=== PATIENT | female | born 1960 | race African-American/Black ===

== ENCOUNTER 2018-05-16 14:14 | Inpatient (IN) | payer SELFPAY ==
[2018-05-16] MEDS ORDERED: NA CHLORIDE 0.9% 1,000 ML ONE ×2 (15:11→18:40)
[2018-05-16] MEDS ORDERED: ONDANSETRON 4 MG/2 ML VIAL ONE (15:11)
[2018-05-16 15:27] LABS: Absolute Lymphocytes (CBC) 1.3 K/uL (0.7-4.9); Absolute Monocytes 0.6 K/uL (0.1-1.3); Absolute Neutrophil 4.9 K/uL (1.8-8.0); Basophils % 0.3 % (0-1.3); Eosinophils % 0.1 % (0-4.4); Hematocrit 16.9 % (36.0-45.0); Lymphocytes % 18.9 % (15.3-44.8); MPV 7.9 fL (7.6-11.3); Monocytes % 8.3 % (3.3-12.3); RBC Red Blood Cell Count 2.02 M/uL (3.86-4.86)
--- NOTE | 2018-05-16 15:30 | EKG ---
Test Date: 2018-05-16 Test Time: 15:07:42 Anatomical Embalmer: MAKI MEASUREMENT RESULTS: Intervals: Rate: 80 DE: 138 QRSD: 84 QT: 420 QTc: 484 [place]: P: 41 DE: 138 QRS: 21 T: -12 INTERPRETIVE STATEMENTS: Normal sinus rhythm T wave abnormality, non specific Abnormal ECG No previous ECG available for comparison Electronically Signed On 05-16-18 15:30:05 DROP TESTER by Derek Duffy
[2018-05-16 15:36] LABS: Protime INR 1.06
[2018-05-16 15:48] LABS: ALT/SGPT 21 U/L (12-78); AST/SGOT 15 U/L (15-37); Albumin 2.8 g/dL (3.4-5.0); Alkaline Phosphatase 67 U/L (45-117); BUN Blood Urea Nitrogen 11 mg/dL (7-18); Bicarbonate 25 mmol/L (21-32); Bilirubin Direct 0.1 mg/dL (0-0.2); Bilirubin Total 0.1 mg/dL (0.2-1.0); Glucose Level 154 mg/dL (74-106); Lipase 80 U/L (73-393); Magnesium 2.2 mg/dL (1.8-2.4); NT PRO-BNP 44 pg/mL (<125); Potassium 3.3 mmol/L (3.5-5.1); Protein, Total 6.9 g/dL (6.4-8.2); Sodium Level 137 mmol/L (136-145); Troponin (Emerg Dept Use Only) < 0.02 ng/mL (0.0-0.045)
[2018-05-16] MEDS ORDERED: PANTOPRAZOLE 40 MG INJ ONE ×2 (16:07→16:41)
--- NOTE | 2018-05-16 16:14 | EDPHYS ---
Physician Documentation [facility] Name: Melissa Tucker Age: 57 yrs Sex: Female : 1960 Arrival Date: 05/16/2018 Time: 14:16 Bed 7 Private MD: ED Physician Trav Gamboa HPI: 05/16 16:05 This 57 yrs old Black Female presents to ER via EMS with complaints of Nausea/Vomiting. zain 16:05 The patient presents to the emergency department with abdominal pain, of the right zain lower quadrant and left lower quadrant. Onset: The symptoms/episode began/occurred 3 day(s) ago. Possible causes: unknown. The symptoms are aggravated by nothing. The symptoms are alleviated by remaining still. Severity of symptoms: At their worst the symptoms were mild moderate in the emergency department the symptoms are unchanged. Historical: - Allergies: 14:19 No Known Allergies; jl7 - Home Meds: 14:19 None [Active]; jl7 - PMHx: 14:19 None; jl7 - PSHx: 14:19 None; jl7 - Immunization history:: Adult Immunizations unknown. - Social history:: Smoking status: Patient/guardian denies using tobacco. - Ebola Screening: : No symptoms or risks identified at this time. ROS: 16:09 Constitutional: Negative for fever, chills, and weight loss, ENT: Negative for injury, zain pain, and discharge, Neck: Negative for injury, pain, and swelling, Cardiovascular: Negative for chest pain, palpitations, and edema, Respiratory: Negative for shortness of breath, cough, wheezing, and pleuritic chest pain, Back: Negative for injury and pain, : Negative for injury, bleeding, discharge, and swelling, MS/Extremity: Negative for injury and deformity, Neuro: Negative for headache, weakness, numbness, tingling, and seizure. 16:09 Eyes: Positive for pale conjuctiva. 16:09 Abdomen/GI: Positive for black/tarry stool. 16:09 Neuro: Positive for dizziness, near syncope, weakness. Exam: 16:09 Constitutional: This is a well developed, well nourished patient who is awake, alert, zain and in no acute distress. Head/Face: Normocephalic, atraumatic. ENT: Nares patent. No nasal discharge, no septal abnormalities noted. Tympanic membranes are normal and external auditory canals are clear. Oropharynx with no redness, swelling, or masses, exudates, or evidence of obstruction, uvula midline. Mucous membranes moist. Neck: Trachea midline, no thyromegaly or masses palpated, and no cervical lymphadenopathy. Supple, full range of motion without nuchal rigidity, or vertebral point tenderness. No Meningismus. Chest/axilla: Normal chest wall appearance and motion. Nontender with no deformity. No lesions are appreciated. Cardiovascular: Regular rate and rhythm with a normal S1 and S2. No gallops, murmurs, or rubs. Normal PMI, no JVD. No pulse deficits. Respiratory: Lungs have equal breath sounds bilaterally, clear to auscultation and percussion. No rales, rhonchi or wheezes noted. No increased work of breathing, no retractions or nasal flaring. Back: No spinal tenderness. No costovertebral tenderness. Full range of motion. Female : Normal external genitalia. MS/ Extremity: Pulses equal, no cyanosis. Neurovascular intact. Full, normal range of motion. Neuro: Awake and alert, GCS 15, oriented to person, place, time, and situation. Cranial nerves II-XII grossly intact. Motor strength 5/5 in all extremities. Sensory grossly intact. Cerebellar exam normal. Normal gait. Psych: Awake, alert, with orientation to person, place and time. Behavior, mood, and affect are within normal limits. 16:09 Eyes: Conjunctiva: pale. 16:09 Abdomen/GI: Bowel sounds: normal, Palpation: abdomen is soft and non-tender, Rectal exam: rectal tone normal, Stool: guaiac positive, black, hemorrhoid(s), are not appreciated, mass, is not appreciated, swelling, is not appreciated, tenderness, is not appreciated, Liver: no appreciated palpable abnormalities, Hernia: not appreciated. Vital Signs: 14:19 BP 109 / 80; Pulse 88; Resp 14 S; Temp 98.5(O); Pulse Ox 100% on R/A; Weight 96.62 kg jl7 (R); Height 5 ft. 6 in. (167.64 cm) (R); Pain 0/10; 15:00 BP 133 / 71; Pulse 99; Resp 16 S; Pulse Ox 99% on R/A; jl7 15:30 BP 128 / 61; Pulse 85; Resp 16 S; Pulse Ox 100% on R/A; jl7 16:00 BP 125 / 75; Pulse 90; Resp 16 S; Pulse Ox 99% on R/A; jl7 16:30 BP 130 / 80; Pulse 98; Resp 16 S; Pulse Ox 99% on R/A; jl7 17:30 BP 127 / 62; Pulse 84; Resp 16 S; Pulse Ox 99% on R/A; jl7 18:00 BP 123 / 67; Pulse 91; Resp 16 S; Temp 97.8(TE); Pulse Ox 100% on R/A; jl7 18:30 BP 132 / 77; Pulse 94; Resp 16 S; Pulse Ox 100% on R/A; Pain 0/10; jl7 20:47 BP 167 / 87; Pulse 88; Resp 16 S; Temp 97.6; Pulse Ox 100% on R/A; bb 14:19 Body Mass Index 34.38 (96.62 kg, 167.64 cm) [facility] MDM: 14:20 Patient medically screened. [facility] 16:09 Data reviewed: vital signs, nurses notes, lab test result(s), EKG, radiologic studies, [facility] plain films. 05/16 14:37 Order name: Basic Metabolic Panel [facility] 05/16 14:37 Order name: CBC with Diff [facility] 05/16 14:37 Order name: LFT's [facility] 05/16 14:37 Order name: Magnesium [facility] 05/16 14:37 Order name: NT PRO-BNP [facility] 05/16 14:37 Order name: PT-INR; Complete Time: 15:53 [facility] 05/16 14:37 Order name: Troponin (emerg Dept Use Only); Complete Time: 15:53 [facility] 05/16 14:37 Order name: Lipase; Complete Time: 15:53 [facility] 05/16 14:37 Order name: Urine Culture [facility] 05/16 14:37 Order name: Basic Metabolic Panel; Complete Time: 15:53 [facility] 05/16 14:37 Order name: CBC with Automated Diff; Complete Time: 15:53 [facility] 05/16 14:37 Order name: Liver (Hepatic) Function; Complete Time: 15:53 [facility] 05/16 14:37 Order name: Magnesium; Complete Time: 15:53 [facility] 05/16 14:37 Order name: NT PRO-BNP; Complete Time: 15:53 [facility] 05/16 14:37 Order name: XRAY Chest (1 view) [facility] 05/16 14:37 Order name: EKG; Complete Time: 14:38 [facility] 05/16 14:37 Order name: Cardiac monitoring; Complete Time: 15:12 [facility] 05/16 14:37 Order name: EKG - Nurse/Tech; Complete Time: 15:12 [facility] 05/16 15:49 Order name: Urine Dipstick--Ancillary (enter results) 05/16 15:53 Order name: Type And Screen [facility] 05/16 16:18 Order name: Bb Add On 05/16 16:25 Order name: Packed RBC Leukored -1 [facility] 05/16 16:36 Order name: ABO/RH no charge [facility] 05/16 14:37 Order name: IV Saline Lock; Complete Time: 15:12 [facility] 05/16 14:37 Order name: Labs collected and sent; Complete Time: 15:12 [facility] 05/16 14:37 Order name: O2 Per Protocol; Complete Time: 15:12 [facility] 05/16 14:37 Order name: O2 Sat Monitoring; Complete Time: 15:12 [facility] 05/16 14:37 Order name: Urine Dipstick-Ancillary (obtain specimen); Complete Time: 16:32 [facility] 05/16 16:02 Order name: Transfuse; Complete Time: 20:30 [facility] 05/16 16:12 Order name: IV Saline Lock - Large Bore; Complete Time: 16:32 [facility] Administered Medications: 15:05 Drug: NS 0.9% 500 ml Route: IV; Rate: bolus; Site: right antecubital; jl7 15:45 Follow up: IV Status: Completed infusion jl7 15:11 Drug: NS 0.9% 1000 ml Route: IV; Rate: 125 ml/hr; Site: right antecubital; jl7 20:31 Follow up: IV Status: Infusion continued upon admission ak1 15:11 Drug: Zofran 4 mg Route: IVP; Site: right antecubital; jl7 15:30 Follow up: Response: No adverse reaction; Nausea is decreased jl7 16:01 Drug: ProTONIX 40 mg Route: IVP; Site: right antecubital; sg 16:59 Follow up: Response: No adverse reaction sg 16:10 Drug: ProTONIX 40 mg Route: IVP; Site: right antecubital; jl7 16:59 Follow up: Response: No adverse reaction sg 16:25 Drug: ProTONIX 8 mg/hr Route: IV; Rate: 25 ml/hr; Site: right antecubital; sg 18:05 Follow up: IV Pause: 05/16/2018 18:05; IV Pause Reason: Limited IV access/Medication jl7 interaction 20:30 Follow up: IV Status: Infusion continued upon admission ak1 16:38 Drug: NS 0.9% 1000 ml Route: IV; Rate: 1 bolus; Site: right antecubital; sg Disposition: 05/16/18 16:13 Hospitalization ordered by Dano Whitney for Observation. Preliminary diagnosis are Gastrointestinal hemorrhage, unspecified - upper, Dizziness and giddiness, Weakness, Anemia, unspecified - upper gi bleed. - Bed requested for Telemetry/MedSurg (Inpatient). - Status is Observation. ak1 - Condition is Fair. - Problem is new. - Symptoms are unchanged. UTI on Admission? No Signatures: Dispatcher [employer] EDMS Sherrill aWlter Kimberly, RN RN kl Gay, Steven, RN RN sg Anderson, Corey, MD MD cha Krenek, Amber, RN RN ak1 Aggie Ortiz RN RN jl7 Cristal Champion RN RAMY df Corrections: (The following items were deleted from the chart) 17:17 16:13 Hospitalization Ordered by Dano Whitney MD for Inpatient Admission. Preliminary bd diagnosis is Gastrointestinal hemorrhage, unspecified - upper; Dizziness and giddiness; Weakness; Anemia, unspecified - upper gi bleed. Bed requested for Telemetry/MedSurg (Inpatient). Status is Inpatient Admission. Condition is Fair. Problem is new. Symptoms are unchanged. UTI on Admission? No. zain 17:48 17:17 05/16/2018 16:13 Hospitalization Ordered by Dano Whitney MD for Observation. df Preliminary diagnosis is Gastrointestinal hemorrhage, unspecified - upper; Dizziness and giddiness; Weakness; Anemia, unspecified - upper gi bleed. Bed requested for Telemetry/MedSurg (Inpatient). Status is Observation. Condition is Fair. Problem is new. Symptoms are unchanged. UTI on Admission? No. bd 20:54 17:48 05/16/2018 16:13 Hospitalization Ordered by Dano Whitney MD for Observation. kl Preliminary diagnosis is Gastrointestinal hemorrhage, unspecified - upper; Dizziness and giddiness; Weakness; Anemia, unspecified - upper gi bleed. Bed requested for Intensive Care Unit. Status is Observation. Condition is Fair. Problem is new. Symptoms are unchanged. UTI on Admission? No. df 22:01 20:54 05/16/2018 16:13 Hospitalization Ordered by Dano Whitney MD for Observation. ak1 Preliminary diagnosis is Gastrointestinal hemorrhage, unspecified - upper; Dizziness and giddiness; Weakness; Anemia, unspecified - upper gi bleed. Bed requested for Telemetry/MedSurg (Inpatient). Status is Observation. Condition is Fair. Problem is new. Symptoms are unchanged. UTI on Admission? No. kl
--- NOTE | 2018-05-16 16:14 | ER ---
Nurse's Notes [facility] Name: Melissa Tucker Age: 57 yrs Sex: Female : 1960 Arrival Date: 05/16/2018 Time: 14:16 Bed 7 Private MD: Diagnosis: Gastrointestinal hemorrhage, unspecified-upper;Dizziness and giddiness;Weakness;Anemia, unspecified-upper gi bleed Presentation: 05/16 14:16 Presenting complaint: EMS states: Pt has been nauseous x 2 days, vomited once in the [facility] [employer] parking lot. Transition of care: patient was not received from another setting of care. Onset of symptoms was May 15, 2018. Risk Assessment: Do you want to hurt yourself or someone else? Patient reports no desire to harm self or others. Initial Sepsis Screen: Does the patient meet any 2 criteria? No. Patient's initial sepsis screen is negative. Does the patient have a suspected source of infection? No. Patient's initial sepsis screen is negative. Care prior to arrival: Glucose check: 147. 14:16 Method Of Arrival: EMS: [email or web address] 14:16 Acuity: KALPANA 4 jl7 15:50 Acuity: KALPANA 3 jl7 Triage Assessment: 14:19 General: Appears in no apparent distress. uncomfortable, Behavior is calm, cooperative. jl7 Pain: Denies pain. EENT: No signs and/or symptoms were reported regarding the EENT system. Neuro: Level of Consciousness is awake, alert, obeys commands, Oriented to person, place, time, situation, Speech is normal, Facial symmetry appears normal. Cardiovascular: Patient's skin is warm and dry. Respiratory: Airway is patent Respiratory effort is even, unlabored, Respiratory pattern is regular, symmetrical. GI: Reports nausea, vomiting, since nausea x 2 days, vomited one time 30 minutes ago. : No signs and/or symptoms were reported regarding the genitourinary system. Derm: Skin is dry, Skin is normal, Skin temperature is warm. Musculoskeletal: No signs and/or symptoms reported regarding the musculoskeletal system. Historical: - Allergies: 14:19 No Known Allergies; jl7 - Home Meds: 14:19 None [Active]; jl7 - PMHx: 14:19 None; jl7 - PSHx: 14:19 None; jl7 - Immunization history:: Adult Immunizations unknown. - Social history:: Smoking status: Patient/guardian denies using tobacco. - Ebola Screening: : No symptoms or risks identified at this time. Screenin:50 Abuse screen: Denies threats or abuse. Denies injuries from another. Nutritional sg screening: No deficits noted. Tuberculosis screening: No symptoms or risk factors identified. Never had TB. Fall Risk None identified. Assessment: 14:25 General: Appears in no apparent distress. comfortable, well groomed, well developed, sg well nourished, Behavior is calm, cooperative, appropriate for age. Pain: Complains of pain in abdomen. Neuro: Level of Consciousness is awake, alert, obeys commands, Oriented to person, place, time, situation, Bricklayer Helper are equal bilaterally Gait is steady, Speech is normal, Facial symmetry appears normal. Cardiovascular: Capillary refill is brisk in bilateral fingers Patient's skin is warm and dry. Chest pain is denied. Respiratory: Airway is patent Trachea midline Respiratory effort is even, unlabored, Respiratory pattern is regular, symmetrical. GI: Abdomen is round obese, Bowel sounds present X 4 quads. GI: Reports nausea, vomiting. : No signs and/or symptoms were reported regarding the genitourinary system. EENT: No signs and/or symptoms were reported regarding the EENT system. Derm: Skin is pink, warm \T\ dry. Musculoskeletal: No signs and/or symptoms reported regarding the musculoskeletal system. 15:30 Reassessment: No changes from previously documented assessment. Patient and/or family jl7 updated on plan of care and expected duration. Pain level reassessed. Patient is alert, oriented x 3, equal unlabored respirations, skin warm/dry/pink. 16:30 Reassessment: Patient appears in no apparent distress at this time. Patient and/or jl7 family updated on plan of care and expected duration. Pain level reassessed. Patient is alert, oriented x 3, equal unlabored respirations, skin warm/dry/pink. 18:05 Reassessment: PRBCs started at 75 ml/hr to right AC. jl7 19:40 Reassessment: Patient appears in no apparent distress at this time. Patient and/or ak1 family updated on plan of care and expected duration. Pain level reassessed. Patient is alert, oriented x 3, equal unlabored respirations, skin warm/dry/pink. Patient states symptoms have improved. pt denies SOB, denies pain at this time. pt informed of admission process and wait for transport to ICU. will continue to monitor. . 21:39 Reassessment: Patient is alert, oriented x 3, equal unlabored respirations, skin bb warm/dry/pink. IV site intact, patent with blood infusing. Vital Signs: 14:19 BP 109 / 80; Pulse 88; Resp 14 S; Temp 98.5(O); Pulse Ox 100% on R/A; Weight 96.62 kg jl7 (R); Height 5 ft. 6 in. (167.64 cm) (R); Pain 0/10; 15:00 BP 133 / 71; Pulse 99; Resp 16 S; Pulse Ox 99% on R/A; jl7 15:30 BP 128 / 61; Pulse 85; Resp 16 S; Pulse Ox 100% on R/A; jl7 16:00 BP 125 / 75; Pulse 90; Resp 16 S; Pulse Ox 99% on R/A; jl7 16:30 BP 130 / 80; Pulse 98; Resp 16 S; Pulse Ox 99% on R/A; jl7 17:30 BP 127 / 62; Pulse 84; Resp 16 S; Pulse Ox 99% on R/A; jl7 18:00 BP 123 / 67; Pulse 91; Resp 16 S; Temp 97.8(TE); Pulse Ox 100% on R/A; jl7 18:30 BP 132 / 77; Pulse 94; Resp 16 S; Pulse Ox 100% on R/A; Pain 0/10; jl7 20:47 BP 167 / 87; Pulse 88; Resp 16 S; Temp 97.6; Pulse Ox 100% on R/A; bb 14:19 Body Mass Index 34.38 (96.62 kg, 167.64 cm) [facility] ED Course: 14:16 Patient arrived in ED. [facility] 14:19 Triage completed. [facility] 14:19 Arm band placed on right wrist. [facility] 14:20 Trav Gamboa MD is Attending Physician. [facility] 14:30 Patient has correct armband on for positive identification. Bed in low position. Call [facility] light in reach. Side rails up X 1. Pulse ox on. NIBP on. Warm blanket given. 15:00 Inserted saline lock: 22 gauge in right antecubital area, using aseptic technique. ss Blood collected. Patient maintains SpO2 saturation greater than 95% on room air. 15:10 Aggie Ortiz, RN is Primary Nurse. jl7 15:13 EKG done, by educational technologist. reviewed by Trav Gamboa MD. sm3 15:18 XRAY Chest (1 view) In Process Unspecified. EDMS 16:10 T\T\S collected, blood band applied to patient. Inserted saline lock: 22 gauge in left jb1 antecubital area, using aseptic technique. 16:12 Dano Whitney MD is Hospitalizing Provider. zain 18:05 IV discontinued, intact, bleeding controlled, No redness/swelling at site. Pressure jl7 dressing applied, 22 left AC dc'd at this time. 20:22 Inserted 18 gauge 10 cm midline to left upper arm brachial vein on second attempt. Line fc with good blood return and flushes well. 20:32 No provider procedures requiring assistance completed. ak1 Administered Medications: 15:05 Drug: NS 0.9% 500 ml Route: IV; Rate: bolus; Site: right antecubital; jl7 15:45 Follow up: IV Status: Completed infusion jl7 15:11 Drug: NS 0.9% 1000 ml Route: IV; Rate: 125 ml/hr; Site: right antecubital; jl7 20:31 Follow up: IV Status: Infusion continued upon admission ak1 15:11 Drug: Zofran 4 mg Route: IVP; Site: right antecubital; jl7 15:30 Follow up: Response: No adverse reaction; Nausea is decreased jl7 16:01 Drug: ProTONIX 40 mg Route: IVP; Site: right antecubital; sg 16:59 Follow up: Response: No adverse reaction sg 16:10 Drug: ProTONIX 40 mg Route: IVP; Site: right antecubital; jl7 16:59 Follow up: Response: No adverse reaction sg 16:25 Drug: ProTONIX 8 mg/hr Route: IV; Rate: 25 ml/hr; Site: right antecubital; sg 18:05 Follow up: IV Pause: 05/16/2018 18:05; IV Pause Reason: Limited IV access/Medication jl7 interaction 20:30 Follow up: IV Status: Infusion continued upon admission ak1 16:38 Drug: NS 0.9% 1000 ml Route: IV; Rate: 1 bolus; Site: right antecubital; sg Outcome: 16:13 Decision to Hospitalize by Provider. zain 20:33 Condition: stable ak1 20:33 Instructed on the need for admit. 21:38 Admitted to Tele accompanied by nurse, accompanied by carlos, via stretcher, room 218, bb with chart, Report called to Malcolm MCCANN 22:01 Patient left the ED. ak1 Signatures: Dispatcher [employer] EDMS Arsen Hooker jb1 Kody Montanez, RN RN Trav Rascon MD MD cha Chretien, Felicia, RN RN fc Jordyn Bagley RN RN Carlota Lemus RN RN ss Nya Zee RN RN ak1 Aggie Ortiz RN RN [email or web address] Sylvie Blackwell 3 Corrections: (The following items were deleted from the chart) 18:28 18:28 IV Status: Completed infusion sal huang
--- NOTE | 2018-05-16 16:16 | RAD REPORT ---
EXAM DESCRIPTION: [place] Single View05/16/2018 3:18 pm CLINICAL HISTORY: abd pain COMPARISON: none FINDINGS: The lungs appear clear of acute infiltrate. The heart is normal size IMPRESSION: No acute abnormalities displayed
[2018-05-16 16:17] LABS: Urine Blood 2+ (NEG); Urine Glucose TRACE (NEG); Urine Protein NEGATIVE (NEG); Urine Specific Gravity 1.025 (1.005-1.030)
[2018-05-16] MEDS: PANTOPRAZOLE INJ 80 MG in NA CHLORIDE 0.9% 250 ML IV SCH (17:00)
[2018-05-16] MEDS ORDERED: NA CHLORIDE 0.9% 250 ML ONE ×2 (18:07→21:04)
[2018-05-16 19:25] VITALS: BMI 34.4
[2018-05-16] MEDS ORDERED: NA CHLORIDE 0.9% 250 ML IV SCH (19:25)
[2018-05-16] MEDS ORDERED: FUROSEMIDE 20 MG/ 2ML VIAL IV ONE (19:25)
[2018-05-16] MEDS ORDERED: ONDANSETRON 4 MG/2 ML VIAL IV PRN (19:25)
[2018-05-16] MEDS: D5.45NS W/KCL 20MEQ 20 MEQ/1,000 ML BAG IV SCH (23:17)
[2018-05-17 01:28] LABS: Hematocrit 21.3 % (36.0-45.0)
[2018-05-17] MEDS: PANTOPRAZOLE INJ 80 MG in NA CHLORIDE 0.9% 250 ML IV SCH ×3 (03:02→23:00)
--- NOTE | 2018-05-17 04:28 | HP ---
Date of Admission: 05/16/2018 Chief Complaint: GI bleed. Payroll Director: RANDY Diana. Primary Care Physician: In Rickman. History Of Present Illness: The patient is a 57-year-old female with no significant past medical history, who was in her usual state of health until day of admission when the patient started having some nausea, vomiting, and some dark stools. The patient does state that she takes iron pills for her anemia. 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 The patient also takes Benadryl on a regular basis and felt that she was dehydrated because of the Benadryl. The patient came into the ER for further evaluation. Her symptoms are constant, moderate, progressively worsening. Her workup revealed a hemoglobin of 5.6, potassium was low at 3.3. The patient was started on blood transfusion, total of 2 units. GI, Dr. Escobar was contacted who recommended blood transfusion and will be consulting on the patient. The patient was then referred for admission and was seen in the ER. In the ER, the patient was awake, alert, oriented x3, in some mild distress. The patient was hypotensive and slightly tachycardic. Past Medical History: Iron-deficiency anemia. Surgical History: Tubal ligation. The patient did have colonoscopy done last year with no significant findings done at [facility]. Allergies: NO KNOWN DRUG ALLERGIES. Medications: The patient takes kluv-lyg-mpkaiod iron pills and potassium supplementation as well as aytv-sns-rbgxcvt Benadryl. Family History: The patient denies any significant coronary artery disease that runs in the family. Social History: The patient is independent in her activities of daily living. 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 Denies any tobacco use or illicit drug use. Review of Systems: An 11-point system reviewed, negative except as per HPI. Physical Examination: Vital Signs: Blood pressure 109/80, pulse 88, respirations 14, temperature 98.5 , O2 100% on room air. General: Awake, alert, oriented x3, some mild distress, obese female, ill- appearing. HEENT: Normocephalic, atraumatic. PERRLA. EOMI. Dry mucous membranes. Oropharynx is clear. Conjunctiva is anicteric. Neck: Supple. No JVD. Trachea midline. CV: S1, S2. Regular rate and rhythm. Peripheral pulses present. No murmurs. Respiratory: Clear to auscultation bilaterally. No wheezing or stridor. No use of accessory muscles. Gastrointestinal: Abdomen is soft, mild tenderness to palpation. No guarding or rigidity. Bowel sounds positive. Extremities: No clubbing, cyanosis, or edema. No calf tenderness. Neuro: Cranial nerves 2 through 12 intact grossly. No focal neurological deficit. Speech is normal. Skin: No rashes. Normal skin turgor. Psych: Mood is okay. Affect is full. Insight and judgment are good. Laboratory Data: Sodium 137, potassium 3.3, chloride 105, CO2 25, BUN 11, creatinine 0.8, glucose 154, calcium 7.9, magnesium 2.2. Troponin less than 0.02. Albumin 2.8. WBC 6.7, H and H 5.6/16.9, MCV 84, MCH 28, platelets 203. INR 1.06. UA is negative. Chest x-ray, personally reviewed, shows no acute infiltrate. EKG shows normal sinus rhythm, rate of 80, nonspecific T-wave abnormality, no previous for comparison. Assessment And Plan: A 57-year-old female with: 1. Acute gastrointestinal bleed secondary to melena. The patient does have some black tarry stools. Dr. Escobar has been consulted. We will monitor H and H q.4 hours x3. 2. Acute blood loss anemia. We will transfuse 2 units PRBCs with Lasix 20 mg IV after each unit secondary to above. 3. Obesity. BMI greater than 30. 4. History of iron-deficiency anemia, on oral iron. 5. Hypokalemia. We will replace and monitor. Plan: Admit the patient to ICU, place inpatient. If hemoglobin remains stable and the patient's blood pressure improves, we will step down out of ICU. We will keep n.p.o. after midnight, the patient may require endoscopy. GI has been consulted, I spoke with Dr. Escobar who will see the patient /JESS Voice ID: [id number] MTDD
[2018-05-17] MEDS ORDERED: FUROSEMIDE 20 MG/ 2ML VIAL IV ONE (05:00)
[2018-05-17] MEDS: D5.45NS W/KCL 20MEQ 20 MEQ/1,000 ML BAG IV SCH (05:25)
[2018-05-17 06:18] LABS: Potassium 3.9 mmol/L (3.5-5.1)
--- NOTE | 2018-05-17 07:48 | P.HP ---
Certification for Inpatient Patient admitted to: Inpatient With expected LOS: >2 Midnights Patient will require the following post-hospital care: None Practitioner: I am a practitioner with admitting privileges, knowledge of patient current condition, hospital course, and medical plan of care. Services: Services provided to patient in accordance with Admission requirements found in Title 42 Section 412.3 of the Code of Federal Regulations Patient History Date of Service: 05/16/18 Reason for admission: Acute blood loss anemia History of Present Illness: Patient is a 57-year-old female who presents to the hospital after becoming lightheaded at work. Patient has a history of anemia and she felt like this was the same thing occurring. She came into the hospital for further evaluation. In the emergency room her hemoglobin came back very low. She was admitted to the hospital for a blood transfusion. She denies any melanotic stools. She denies any hematemesis. She no longer has a period. She is unsure as to why she is losing the blood. She will be admitted to the hospital for blood transfusion and further workup of her anemia. Allergies No Known Allergies Allergy (Verified 05/17/18 00:24) Home Medications: NK [No Home Meds] 05/16/18 - Past Medical/Surgical History Has patient received pneumonia vaccine in the past: No Diabetic: No -: Anemia -: Bilateral tubal ligation - Family History Father Family History: Reviewed- Non-Contributory - Social History Smoking Status: Never smoker Alcohol use: No CD- Drugs: No Caffeine use: Yes Place of Residence: Home Review of Systems 10-point ROS is otherwise unremarkable Physical Examination - Vital Signs Temperature: 98.0 F Blood Pressure: 118/62 Pulse: 84 Respirations: 18 Pulse Ox (%): 97 - Physical Exam General: Alert, In no apparent distress, Oriented x3 HEENT: Atraumatic, PERRLA, Mucous membr. moist/pink, EOMI, Sclerae nonicteric Neck: Supple, 2+ carotid pulse no bruit, No LAD, Without JVD or thyroid abnormality Respiratory: Clear to auscultation bilaterally, Normal air movement Cardiovascular: Regular rate/rhythm, Normal S1 S2, No murmurs Gastrointestinal: Normal bowel sounds, Soft and benign, Non-distended, No tenderness Musculoskeletal: No clubbing, No swelling, No tenderness Integumentary: No rashes Neurological: Normal gait, Normal speech, Normal strength at 5/5 x4 extr, Normal tone, Sensation intact, Cranial nerves 3-12 intact, Normal affect Lymphatics: No axilla or inguinal lymphadenopathy - Studies Laboratory Data (last 24 hrs) 05/16/18 15:04: PT 12.5, INR 1.06 05/16/18 15:04: WBC 6.7, Hgb 5.6 L*, Hct 16.9 L*, Plt Count 203 05/16/18 15:04: Sodium 137, Potassium 3.3 L, BUN 11, Creatinine 0.80, Glucose 154 H, Magnesium 2.2, Total Bilirubin 0.1 L, AST 15, ALT 21, Alkaline Phosphatase 67, Lipase 80 Assessment & Plan - Problems (Diagnosis) (1) Acute blood loss anemia Current Visit: Yes Status: Acute - Plan Plan: 1. Continue with IV hydration 2. Transfused 2-3 units of packed red blood cells. 3. Patient will need anemia workup 4. No signs of GI bleeding so will continue with a regular diet 5. Serial H&H, and we will monitor LFTs and lipase along with electrolytes. 6. GI and DVT prophylaxis Discharge Plan: Home Plan to discharge in: Greater than 2 days - Advance Directives Does patient have a Living Will: No Does patient have a Durable POA for Healthcare: No - Code Status/Comfort Care Code Status Assessed: Yes Code Status: Full Code Critical Care: No Time Spent Managing PTS Care (In Minutes): 50
[2018-05-17 07:55] LABS: Hematocrit 24.8 % (36.0-45.0)
[2018-05-17] MEDS ORDERED: Ringers Lactate 1,000 ML IV ONE (09:12)
[2018-05-17] MEDS ORDERED: PROPOFOL 200 MG/20 ML VIAL IV ONE (09:46)
[2018-05-17 10:08] VITALS: O2SAT 98
--- NOTE | 2018-05-17 12:33 | RAD REPORT ---
EXAM DESCRIPTION: CTAbdomen Pelvis W Contrast - 05/17/2018 12:19 pm CLINICAL HISTORY: Abdominal pain. abdominal pain, gi bleed COMPARISON: No comparisons TECHNIQUE: Biphasic CT imaging of the abdomen and pelvis was performed with 100 ml non-ionic IV cont rast. All CT scans are performed using dose optimization technique as appropriate and may include automated exposure control or mA/KV adjustment according to patient size. FINDINGS: The lung bases are clear. Mild fatty liver is present. Mild pneumobilia is present. Cholecystectomy clips are seen. The spleen, pancreas and adrenal glands are normal. The right kidney is normal. Large necrotic left renal mass i s present measuring 7.8 x 6.0 cm, compatible with renal cell carcinoma. No bowel obstruction, free air, free fluid or abscess. Prominent sigmoid diverticulosis is present wi thout diverticulitis. The appendix is normal. No evidence of significant lymphadenopathy. No suspicious bony findings. IMPRESSION: Large left renal mass with necrosis measuring 7.8 x 6.0 cm. This is compatible with RCC. Sigmoid diverticulosis coli without diverticulitis. Findings were relayed to Dr. Escobar's assistant project manager.
--- NOTE | 2018-05-17 18:22 | P.PN ---
Subjective Date of Service: 05/17/18 Chief Complaint: Acute blood loss anemia Physical Examination - Vital Signs Temperature: 97.5 F Blood Pressure: 161/97 Pulse: 74 Respirations: 16 Pulse Ox (%): 100 Assessment And Plan - Plan This is a 49-year-old female with: Acute blood-loss anemia Hemoglobin stable, no evidence of melanotic stools, hematemesis. She is also denying any hematuria area at this time. EGD done today, no active bleeding noted. Necrotic Renal mass Noted on CT of the abdomen; patient not aware of any prior mass. We recommend transferring patient to [facility] for further evaluation of this large renal, necrotic mass. Patient states that she would not like to be transferred and she needs to go back to work or she will lose her house, jobs. She also states that she needs to be there for her daughter and she is also at this time. Discussed with patient the importance of getting further evaluation of this mass. Per patient, she would like to get this done outpatient even though we do recommend transferring for further evaluation of the mass. DVT prophylaxis: SCDs, encouraged ambulation GI prophylaxis: None Diet: Regular Disposition: Recommending transferred to [place] for further evaluation of renal mass. Patient states that she would not like this, I would like to pursue this further outpatient. She would like to sign out AMA, though does not have a ride until tomorrow morning.
--- NOTE | 2018-05-17 20:46 | OP ---
Surgeon: King Escobar MD Procedure To Be Performed: Esophagogastroduodenoscopy. Performing Physician: King Escobar M.D. Indication For Procedure: GI bleed leading to severe anemia, suspected lower versus diverticular thi zuleima upper. Plan For Anesthesia: Monitored anesthesia care. Complexity: High due to possibility of therapeutic procedure. Technique: After obtaining informed consent from the patient and explaining risks and complications, which include, but are not limited to bleeding, infection, perforation, and anesthesia complications , the patient was placed in the left lateral position and sedation was given. From then on, the scop e was advanced to the mouth and carefully guided up till the second portion of the duodenum. There w as no evidence of active bleeding seen. After the completion of the examination and all diagnostic a nd therapeutic maneuvers, the scope and equipment were withdrawn and procedure terminated in a safe m kristyn. Esophagus: No gross lesion seen in the upper and the whole esophagus except for an irregular Z-line, biopsies taken. In the stomach, careful detailed examination did not reveal any significant cause of bleeding. There was possibility of a small AVM that was seen. As a precaution, this was a blated with APC. Mild patchy erythema seen in the antrum, biopsies taken. Duodenum, the bulb, and s econd portion appeared normal. Complications: None. Tolerance To Anesthesia: Excellent. 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 Plan: 1.Await pathology results. 2.Continue PPI. We will need to obtain further history regarding her anemia as she is known to be a nemic and is on iron pills. There does not seem to be right now any active bleeding. Monitor H and H, transfuse as needed. May also require a colonoscopy, which if hemoglobin remains stable, can be d one as an outpatient. If, however, H and H continues to decline, may need as an inpatient basis. As a further workup for her vague abdominal pain, I am also ordering a CT scan of the abdomen and pelvi s. US/MODL Voice ID: [id number] Report ID: [id number]
[2018-05-18 04:54] LABS: Absolute Lymphocytes (CBC) 1.7 K/uL (0.7-4.9); Absolute Monocytes 0.5 K/uL (0.1-1.3); Absolute Neutrophil 2.8 K/uL (1.8-8.0); Basophils % 0.3 % (0-1.3); Eosinophils % 2.5 % (0-4.4); Hematocrit 22.1 % (36.0-45.0); Lymphocytes % 33.2 % (15.3-44.8); MPV 7.7 fL (7.6-11.3); Monocytes % 9.1 % (3.3-12.3); RBC Red Blood Cell Count 2.46 M/uL (3.86-4.86)
[2018-05-18 05:14] LABS: Albumin 2.5 g/dL (3.4-5.0); Bilirubin Total 0.3 mg/dL (0.2-1.0); Potassium 4.1 mmol/L (3.5-5.1)
[2018-05-18] MEDS: PANTOPRAZOLE INJ 80 MG in NA CHLORIDE 0.9% 250 ML IV SCH (05:42)
[2018-05-18] MEDS ORDERED: PANTOPRAZOLE 40 MG INJ ONE (05:43)
--- NOTE | 2018-05-18 10:42 | P.DS ---
Admission Date: 05/16/18 Discharge Date: 05/18/18 Disposition: ROUTINE DISCHARGE Discharge Condition: GOOD Reason for Admission: Acute blood loss anemia Consultations: Gastroenterology, Dr. Escobar Procedures: 05/17/2019: EGD Brief History of Present Illness: Patient is a 57-year-old female who presents to the hospital after becoming lightheaded at work. Patient has a history of anemia and she felt like this was the same thing occurring. She came into the hospital for further evaluation. In the emergency room her hemoglobin came back very low. She was admitted to the hospital for a blood transfusion. She denies any melanotic stools. She denies any hematemesis. She no longer has a period. She is unsure as to why she is losing the blood. She will be admitted to the hospital for blood transfusion and further workup of her anemia. Hospital Course: She was admitted for Acute blood-loss anemia, status post 3 units PRBCs this hospitalization. Hemoglobin stable, no evidence of active bleeding via melanotic stools or hematemesis. No hematuria at this time either. EGD was done during this hospitalization, no active bleeding noted. Consistently on her CT scan of the abdomen, and 8 cm necrotic renal masses noted on the left kidney. Patient was not aware of any prior mass. We did discuss transferring patient to [place] for further evaluation/interventional radiology for kidney biopsy. Patient states that she would like to start this workup as an outpatient as she does not have insurance at this time. She is working, she and she will be applied for her insurance hopefully to be starting at the beginning of the next year. Discussed for patient to call insurance to see which you were all adjusts will be in the workup for her. Recommended making that appointment as soon as possible to get this further evaluated. She remained hemodynamically stable throughout the stay. At the time of discharge, she was tolerating a diet, ambulating normally, asymptomatic and denying any active bleeding. Her symptoms/diagnoses were explained, all questions were answered and patient verbalized understanding. Vital Signs/Physical Exam: Temp Pulse Resp BP Pulse Ox 97.7 F 82 18 124/57 L 93 05/18/18 00:00 05/18/18 00:00 05/18/18 00:00 05/18/18 00:00 05/18/18 00:00 General: Alert, In no apparent distress, Oriented x3 HEENT: Atraumatic, PERRLA, EOMI Neck: Supple, JVD not distended Respiratory: Clear to auscultation bilaterally, Normal air movement Cardiovascular: Regular rate/rhythm, Normal S1 S2 Gastrointestinal: Normal bowel sounds, No tenderness Musculoskeletal: No tenderness Integumentary: No rashes Neurological: Normal speech, Normal tone, Normal affect Lymphatics: No axilla or inguinal lymphadenopathy Laboratory Data at Discharge: WBC 5.0 K/uL (4.3-10.9) D 05/18/18 04:30 Hgb 8.0 g/dL (12.0-15.0) L 05/18/18 04:30 Hct 22.1 % (36.0-45.0) L 05/18/18 04:30 Plt Count 152 K/uL (152-406) D 05/18/18 04:30 PT 12.5 SECONDS (9.5-12.5) 05/16/18 15:04 INR 1.06 05/16/18 15:04 Sodium 142 mmol/L (136-145) 05/18/18 04:30 Potassium 4.1 mmol/L (3.5-5.1) 05/18/18 04:30 BUN 10 mg/dL (7-18) 05/18/18 04:30 Creatinine 0.90 mg/dL (0.55-1.3) 05/18/18 04:30 Glucose 101 mg/dL (74-106) 05/18/18 04:30 Magnesium 2.2 mg/dL (1.8-2.4) 05/16/18 15:04 Total Bilirubin 0.3 mg/dL (0.2-1.0) 05/18/18 04:30 AST 17 U/L (15-37) 05/18/18 04:30 ALT 18 U/L (12-78) 05/18/18 04:30 Alkaline Phosphatase 60 U/L (45-117) 05/18/18 04:30 Lipase 80 U/L (73-393) 05/16/18 15:04 Home Medications: NK [No Home Meds] 05/16/18 Patient Discharge Instructions: 1) please follow up with the primary care physician in 1 week. 2) please follow up with the urologist. As discussed, call your insurance company to find out which urologists are in network. 3) you were treated for acute blood loss anemia with 3 units of blood during this hospitalization. A hemoglobin has remained stable since then. An EGD was done during this hospitalization, with no active bleeding noted. 4) Necrotic Renal mass: This was noted on CT scan of the abdomen; it is very important that you will follow up with the urologist as soon as possible to get this mass further evaluated. Diet: Regular Activity: Ad roxanna Physician Review: Patient Assessed, Agree with Above Assessment and Plan Time spent managing pt's care (in minutes): 55
[2018-05-18 15:47] VITALS: BP 144/87; TEMP 97
== END 2018-05-18 12:11 | disposition home or self-care (01) | DRG 812 ==
LOC: ER 14:14 → ERHOLD 17:17 → 2ND 21:44
PROVIDERS: ADMIT Family Medicine; ATTEND Family Medicine
PROC: 30233N1 Transfusion of Nonautologous Red Blood Cells into Peripheral Vein, Percutaneous Approach (ICD-10-PCS; 2018-05-16)
PROC: 0DB78ZX Excision of Stomach, Pylorus, Via Natural or Artificial Opening Endoscopic, Diagnostic (ICD-10-PCS; 2018-05-17)
PROC: 0W3P8ZZ Control Bleeding in Gastrointestinal Tract, Via Natural or Artificial Opening Endoscopic (ICD-10-PCS; 2018-05-17)
PROC: 0DB58ZX Excision of Esophagus, Via Natural or Artificial Opening Endoscopic, Diagnostic (ICD-10-PCS; principal; 2018-05-17 08:45)
DX: D62 Acute posthemorrhagic anemia (principal); K92.2 Gastrointestinal hemorrhage, unspecified; D50.9 Iron deficiency anemia, unspecified; I95.9 Hypotension, unspecified; R00.0 Tachycardia, unspecified; E66.9 Obesity, unspecified; Z68.30 Body mass index [BMI] 30.0-30.9, adult; E87.6 Hypokalemia; N28.89 Other specified disorders of kidney and ureter; K29.70 Gastritis, unspecified, without bleeding; K31.819 Angiodysplasia of stomach and duodenum without bleeding
CPT/HCPCS: 36415; 36430; 71045; 74177; 80048; 80053; 80076; 81003; 83690; 83735; 83880; 84484; 85014; 85018; 85025; 85610; 86850; 86900; 86901; 87086; 87088; 88305; 88312; 93005; 96361; 96365; 96366; 96375; 99285; C9113; J1940; J2405; J2704; J7030; P9016; Q9967